=== PATIENT | female | born 2000 | race Caucasian/White ===

== ENCOUNTER → 2019-08-21 16:52 | Outpatient (CLI) | payer OTHER, SELFPAY ==
[2019-08-21 17:06] LABS: Basophils # 0.1 K/mm3 (0-0.2); Basophils % 0.8 % (0.1-2.0); Eosinophils # 0.2 K/mm3 (0.0-0.4); Eosinophils % 1.9 % (0.1-12.0); Hematocrit 48.5 % (37.0-47.0); Hemoglobin 16.2 g/dL (12.2-16.2); Mean Corpuscular HGB Conc 33.5 g/dL (31.8-35.4); Mean Corpuscular Hemoglobin 31.2 pg (27.0-31.2); Mean Corpuscular Volume 93.4 fl (81-99); Mean Platelet Volume 7.9 fl (7.4-10.4); Monocytes # 0.4 K/mm3 (0.1-1.0); Monocytes % 3.8 % (1.7-9.3); Neutrophils # 7.1 K/mm3 (1.8-7.8); Neutrophils % 65.5 % (37.0-80.0); Platelet Count 281 K/mm3 (142-424); Red Blood Count 5.19 M/mm3 (4.20-5.40); Red Cell Distribution Width 12.9 % (11.5-17.5); White Blood Count 10.8 K/mm3 (4.5-13.0)
[2019-08-21 18:31] LABS: Erythrocyte Sedimentation Rate 2 mm/hr (0-20)
[2019-08-21 19:41] LABS: Alanine Aminotransferase 16 U/L (12-78); Albumin Level 4.1 gm/dL (3.4-5.0); Albumin/Globulin Ratio 1.2 (1.1-1.8); Alkaline Phosphatase 84 U/L (46-116); Anion Gap 15.5 mEq/L (5-15); Aspartate Amino Transferase 17 U/L (15-37); Bilirubin,Total 0.9 mg/dL (0.2-1.0); Blood Urea Nitrogen 15 mg/dL (7-18); Calcium 9.5 mg/dL (8.5-10.1); Carbon Dioxide 27 mmol/L (21.0-32.0); Chloride 102 mmol/L (98-107); Chol/HDL Ratio 2.6 (1-3.5); Cholesterol 153 mg/dL (140-200); Creatinine,Serum 0.77 mg/dL (0.55-1.02); Estimated Glomerular Filt Rate 96 ml/min (>60); GFR (African American) 116 ML/MIN (>60); Globulin 3.5 gm/dl (1.3-3.2); Glucose 105 mg/dL (74-106); HDL Cholesterol 59 mg/dL (29-89); LDL Cholesterol 79 mg/dL (0-130); Potassium 3.5 mmoL/L (3.5-5.1); Sodium 141 mmol/L (136-145); T4 (Thyroxine) 9.1 ug/dl (5.4-10.6); Thyroid Stimulating Hormone 1.16 uIU/ml (0.516-4.13); Total Protein,Serum 7.6 gm/dL (6.4-8.2); Triglycerides 75 mg/dL (30-200); VLDL Cholesterol 15 mg/dL (0-40)
[2019-08-21 19:42] LABS: C-Reactive Protein < 0.2 mg/dL (0.0-0.9)
[2019-08-21 19:43] LABS: HCG Qualitative, Serum Negative (Negative)
[2019-08-23 11:04] LABS: Vitamin D 25 Hydroxy 27.5 ng/mL (30.0-100.0)
[2019-08-23 16:52] LABS: Peripheral Smear Review Scanned Result
== END ==
PROVIDERS: Visit Provider Nurse Practitioner Family
DX: N63.20 Unspecified lump in the left breast, unspecified quadrant (principal); R59.0 Localized enlarged lymph nodes; R79.82 Elevated C-reactive protein (CRP); E55.9 Vitamin D deficiency, unspecified
CPT/HCPCS: 36415; 80053; 80061; 82652; 84436; 84443; 84703; 85025; 85651; 86140

== ENCOUNTER → 2019-09-17 13:02 | Outpatient (CLI) | payer OTHER, SELFPAY ==
--- NOTE | 2019-09-17 13:03 | US_ITS ---
PROCEDURE: MM DIG MAMM BI DX W/CAD CLINICAL INDICATION: mass,discharge,enlarged lymp node COMPARISON: US BREAST LT COMPLETE from 09/17/2019 TECHNIQUE: Standard CC and MLO images and 3D Tomosynthesis was obtained. R2 CAD reviewed. Left breast ultrasound. FINDINGS: Patient reports palpable nodule in the 10 o'clock region of the left breast. There is heterogeneously dense fibroglandular tissue bilaterally which may obscure mammographic lesion. There benign-appearing calcifications in the retroareolar region on the right.. There is mild skin thickening bilaterally of questionable clinical significance. Asymmetry is present in the deep upper aspect of the left breast. This appears to compress out on the spot compression views. Left breast ultrasound: In the region of the palpable abnormality there is some heterogeneous echogenicity which appears to represent fibroglandular tissue. No discrete margins. No posterior acoustical shadowing. This area is wider than tall. IMPRESSION: Probably benign findings left breast. Probable asymmetric fibroglandular tissue in the upper aspect of the left breast. Recommend 3 month follow-up BI-RAD Category: 3 Probably Benign Finding Short Term Follow-up FOLLOW-UP: 3M 3 Month Follow-up (A letter has been sent to the patient regarding results of the study.) Dictated by: Jorge Díaz MD 09/20/2019 10:28 Electronically signed by Jorge Díaz MD in [place] 09/20/2019 10:28
== END ==
PROVIDERS: PCP Nurse Practitioner Family; Visit Provider Nurse Practitioner Family
DX: N63.21 Unspecified lump in the left breast, upper outer quadrant (principal)
CPT/HCPCS: 76641; 77062; 77066; G0279

== ENCOUNTER → 2019-10-09 14:13 | Outpatient (CLI) | payer OTHER, SELFPAY ==
[2019-10-09 14:43] LABS: Basophils # 0.1 K/mm3 (0-0.2); Basophils % 0.7 % (0.1-2.0); Eosinophils # 0.1 K/mm3 (0.0-0.4); Eosinophils % 0.8 % (0.1-12.0); Hematocrit 46.3 % (37.0-47.0); Hemoglobin 15.7 g/dL (12.2-16.2); Lymphocytes # 3.2 K/mm3 (0.7-4.5); Lymphocytes % 30.5 % (10-50); Mean Corpuscular HGB Conc 33.9 g/dL (31.8-35.4); Mean Corpuscular Hemoglobin 31.8 pg (27.0-31.2); Mean Corpuscular Volume 93.9 fl (81-99); Mean Platelet Volume 8.6 fl (7.4-10.4); Monocytes # 0.4 K/mm3 (0.1-1.0); Monocytes % 3.9 % (1.7-9.3); Neutrophils # 6.8 K/mm3 (1.8-7.8); Neutrophils % 64.1 % (37.0-80.0); Platelet Count 294 K/mm3 (142-424); Red Blood Count 4.92 M/mm3 (4.20-5.40); Red Cell Distribution Width 12.9 % (11.5-17.5); White Blood Count 10.6 K/mm3 (4.5-13.0)
== END ==
PROVIDERS: PCP Internal Medicine Medical Oncology; Visit Provider Internal Medicine Medical Oncology
DX: D75.1 Secondary polycythemia (principal)
CPT/HCPCS: 36415; 85025

== ENCOUNTER → 2020-02-03 12:46 | Outpatient (CLI) | payer OTHER, SELFPAY ==
--- NOTE | 2020-02-03 12:46 | US_ITS ---
PROCEDURE: MM DIG MAMM DX UNILAT LT CAD Digital Breast Tomosynthesis Included CLINICAL INDICATION: 3 mth followup . Patient feels thick ridge along the chest wall COMPARISON: MM DIG MAMM BI DX W/CAD from 09/17/2019 US BREAST LT COMPLETE from 09/17/2019 US BREAST LT COMPLETE from 02/03/2020 TECHNIQUE: Standard images performed with 3D tomogram images and left breast ultrasound FINDINGS: Dense fibroglandular tissue. Asymmetry once again noted in the superior aspect of the left breast without sonographic correlate. No malignant appearing mass or malignant-appearing microcalcification. Left breast ultrasound: No cyst or solid nodules are evident within the breast. There are small nodes in the axilla. IMPRESSION: Probably benign findings regarding asymmetry in the superior left breast. Please correlate with physical exam. Negative mammogram and negative ultrasound does not exclude the possibility of malignancy. If there is a palpable nodule then, it should be managed on a clinical basis. BI-RAD Category: 3 Probably Benign Finding Short Term Follow-up FOLLOW-UP: 6M 6Month Follow-up (A letter has been sent to the patient regarding results of the study.) Dictated by: Jorge Díaz MD 02/06/2020 13:19 Electronically signed by Jorge Díaz MD in [place] 02/06/2020 13:19
== END ==
PROVIDERS: PCP Internal Medicine Medical Oncology; Visit Provider Nurse Practitioner Family
DX: R92.8 Other abnormal and inconclusive findings on diagnostic imaging of breast (principal)
CPT/HCPCS: 76641; 77061; 77065; G0279

== ENCOUNTER → 2020-08-04 13:47 | Outpatient (CLI) | payer OTHER, SELFPAY ==
--- NOTE | 2020-08-04 13:47 | MM_ITS ---
PROCEDURE: MM DIG MAMM DX UNILAT LT CAD Digital Breast Tomosynthesis Included CLINICAL INDICATION: 6 mth f/u COMPARISON: MG MM DIG MAMM BI DX W/CAD from 09/17/2019 MG MM DIG MAMM DX UNILAT LT CAD from 02/03/2020 TECHNIQUE: Standard CC and MLO images and 3D Tomosynthesis was obtained. R2 CAD reviewed. FINDINGS: Prominent fibroglandular densities are seen as noted previously. Slightly asymmetric increased glandular elements are seen upper outer quadrant as before. Again ultrasound performed the same date shows no abnormality. IMPRESSION: Moderately dense and heterogenic breast parenchyma, essentially normal appearance at this age with no suspicious lesions seen BI-RAD Category: 1 Negative FOLLOW-UP: 1YR 1 Year Follow-up after the age of 38 (A letter has been sent to the patient regarding results of the study.) Dictated by: Dr. Mundo Alfaro MD 08/04/2020 15:17 Dr. Mundo Alfaro MD in [place] 08/04/2020 15:17
--- NOTE | 2020-08-04 13:47 | US_ITS ---
PROCEDURE: US BREAST LT COMPLETE CLINICAL INDICATION: 6 mth f/u COMPARISON: US US BREAST LT COMPLETE from 02/03/2020 FINDINGS: Scanning all 4 quadrants of the breast shows somewhat diffuse heterogenic echogenicity consistent with fibrocystic change. There is no suspicious cystic or solid lesion there are no findings to suggest architectural distortion. There is a normal appearing node in the axilla. IMPRESSION: Essentially unremarkable ultrasound for this age with no change when compared to previous studies and no suspicious lesions seen Dictated by: Dr. Mundo Alfaro MD 08/04/2020 15:19 Dr. Mundo Alfaro MD in [place] 08/04/2020 15:19
== END ==
PROVIDERS: PCP Nurse Practitioner Family; Visit Provider Nurse Practitioner Family
DX: R92.8 Other abnormal and inconclusive findings on diagnostic imaging of breast (principal)
CPT/HCPCS: 76641; 77061; 77065; G0279

== ENCOUNTER → 2021-05-20 10:29 | Outpatient (CLI) | payer OTHER, SELFPAY | PROVIDERS: Visit Provider Nurse Practitioner | DX: Z20.822 Contact with and (suspected) exposure to COVID-19 (principal) | CPT/HCPCS: C9803; U0003; U0005 ==

== ENCOUNTER → 2021-05-23 08:20 | Outpatient (CLI) | payer OTHER, SELFPAY | PROVIDERS: Visit Provider Nurse Practitioner | DX: Z20.822 Contact with and (suspected) exposure to COVID-19 (principal); U07.1 COVID-19 | CPT/HCPCS: C9803; U0003; U0005 ==

== ENCOUNTER 2021-05-23 17:37 | Emergency (ER) | payer OTHER, SELFPAY ==
--- NOTE | 2021-05-23 18:34 | HMH.EDUTC ---
[facility] [place] Disposition Clinical Impression: COVID-19, Viral syndrome Disposition: Home, Self-Care Condition on Discharge: Good Instructions: DI for COVID-19 (Suspected or Confirmed ), Preventing the Spread of Coronavirus Discharge Instructions Additional Instructions: Drink plenty of fluids. Take tylenol or ibuprofen for pain or fever. Try to take one of these regularly for the next several days to help yourself feel better and to help keep your fever down. Take the medications as directed. Follow up with your regular doctor. GO TO THE ER FOR ANY WORSENING SYMPTOMS Throw your tooth brush away and get a new one. Quarantine until it has been 10 days since symptoms first appeared and it has been 24 hours with no fever without the use of fever-reducing medications and your other symptoms of COVID-19 are improving The cough medication (promethazine dm) will make you drowsy, so don't drive or operate heavy machinery after taking it. Prescriptions: Ondansetron [Zofran 4mg ODT] 4 mg PO Q8HP PRN #12 tab PRN Reason: Nausea Transmission Status: Received by [id number] Benzonatate [Tessalon Perle 100mg Cap] 100 mg PO TIDP PRN #30 cap PRN Reason: Cough Transmission Status: Received by [id number] Referrals: Liz Worrell APRN [Primary Care Provider] - Time of Disposition: 18:50 Medical Decision Making - Medical Records Medical records reviewed: No: I reviewed the patient's medical records. - Deon Inquiry Pt receiving controlled substance: No Vital Signs: 05/23/21 18:56 Temperature 98.9 F Temperature Source Oral Pulse Rate 70 Respiratory Rate 16 Blood Pressure 110/74 Blood Pressure Source Automatic Cuff Blood Pressure Position Sitting Oxygen Delivery Method Room Air [facility] [place] HPI - General Stated complaint: covid pos/fever Time Seen by Provider: 05/23/21 18:34 - History of Present Illness Provider Complaint: She has felt bad for the past 3 days. She initially tested negative for covid-19, but this morning she retested and it was positive. At this time she has body aches, a dry aggravating cough, a scratchy sore throat and a head ache. She has also had some nausea also, but no vomiting or diarrhea. She denies any history of asthma or diabetes. - Related Data Previous Rx's Medication Instructions Recorded alprazolam 0.25 mg tablet 0.25 mg PO BID PRN #60 tab 03/16/21 cariprazine 1.5 mg capsule 1.5 mg PO DAILY #30 cap 03/16/21 vilazodone 40 mg tablet 40 mg PO DAILY #30 tab 04/27/21 Benzonatate [Tessalon Perle 100mg 100 mg PO TIDP PRN #30 cap 05/23/21 Cap] Ondansetron [Zofran 4mg ODT] 4 mg PO Q8HP PRN #12 tab 05/23/21 Allergies Allergy/AdvReac Type Severity Reaction Status Date / Time ketorolac [From TORADOL] Allergy Intermediate I-RASH Verified 03/16/21 16:22 codeine [CODEINE] Allergy Unknown Verified 03/16/21 16:22 Penicillins Allergy Verified 03/16/21 16:22 [facility] History - Hepatitis A Screen Attestation statement:: This patient has been screened for Hepatitis A risk factors. I have reviewed the patient's past medical history: Yes Other Surgeries: Yes: Appendectomy Amputation: No Fractures: No - Social History Smoking Status: Current every day smoker Tobacco Type: cigarettes # Packs/Day (cigarettes): 1 Alcohol Intake: never Substance Use Type: denies use, marijuana Occupational Status: unemployed, other Housing: house Household Members: family Family Hx:: Cancer, Diabetes ROS Obtained: Yes All systems reviewed & no additional complaints - Constitutional Constitutional: Reports as per HPI - Eyes Eyes: Denies blurry vision, Denies eye discharge - ENT Ears, Nose, Mouth, and Throat: Reports as per HPI - Cardiovascular Cardiovascular: Denies chest pain - Respiratory Respiratory: Reports chest congestion, Reports cough, Denies dyspnea, Denies stridor, Denies wheezing Physical Exam - General General appearance:
[2021-05-23 18:56] VITALS: BP 110/74; PULSE 70; RESP 16; TEMP 37.2; O2SAT 98
== END 2021-05-23 18:57 | disposition home or self-care (01) ==
LOC: ER 17:43 → UTC 17:45
PROVIDERS: Emergency Provider Nurse Practitioner Family; PCP Nurse Practitioner Family
DX: U07.1 COVID-19 (principal); F17.210 Nicotine dependence, cigarettes, uncomplicated
CPT/HCPCS: 99202; G0463

== ENCOUNTER 2022-12-17 13:57 | Emergency (ER) | payer OTHER, SELFPAY ==
[2022-12-17] VITALS (10 sets, daily range): BP systolic 114–152; BP diastolic 78–95; PULSE 67–127; RESP 18–20; TEMP 37.1; O2SAT 99–100; BMI 21.4
--- NOTE | 2022-12-17 13:54 | ECG_ITS ---
APPROVED REPORT Exam: Resting ECG HR:113 bpm ECG Measurements Heart Rate 113 AXES MA 143 P 87 QRSd 90 QRS 86 QT 295 T 58 QTc 362 Conclusion SINUS TACHYCARDIA Bi-atrial abnormality MODERATE ST DEPRESSION [0.05+ mV ST DEPRESSION] ABNORMAL ECG UNCONFIRMED REPORT Electronically signed by : Thomas Vidal MD 12/18/2022 21:17:58
--- NOTE | 2022-12-17 13:58 | XR_ITS ---
PROCEDURE INFORMATION: Exam: XR Chest Exam date and time: 12/17/2022 2:48 PM Age: 22 years old Clinical indication: Pain; Chest pressure; Additional info: Chest pain TECHNIQUE: Imaging protocol: Radiologic exam of the chest. Views: 1 view. COMPARISON: No relevant prior studies available. FINDINGS: Lungs: Unremarkable. No consolidation. Pleural spaces: Unremarkable. No pleural effusion. No pneumothorax. Heart/Mediastinum: Unremarkable. No cardiomegaly. Bones/joints: Unremarkable. IMPRESSION: No acute findings.
--- NOTE | 2022-12-17 13:59 | HMH.EDGENADL ---
Discharge Plan Disposition Patient Disposition: Home, Self-Care Condition: Fair Prescriptions Prescriptions: No Action alprazolam [Xanax] 0.25 mg tablet 0.25 mg PO BID PRN (Reason: anxiety) Qty: 60 1RF Vraylar 1.5 mg capsule 1.5 mg PO DAILY Qty: 30 1RF Viibryd 40 mg tablet 40 mg PO DAILY Qty: 30 1RF Rx Instructions: must administer with a meal/food Clinical Impressions Clinical Impression: Acute viral syndrome Stand Alone Forms Stand Alone Forms: Work/School Release Instructions Patient Instructions: DI for Viral Syndrome Discharge ED Provider: [facility] HPI General Chief complaint: Chest Pain Stated complaint: Chest Pain Time Seen by Provider: 12/17/22 13:59 History of Present Illness HPI narrative: Patient is a 22-year-old female with no pertinent past medical history who presents with concern for multiple complaints. She says that over the last 2 to 3 days she is felt very weak. She also notes that her body hurts all over and she has generalized malaise. She came in today because she started to develop chest pain. She denies any cough or congestion. No fever or chills. Denies any abdominal pain. Denies any dysuria. She does endorse some shortness of breath. Related Data Previous Rx's Medication Instructions Recorded alprazolam 0.25 mg tablet (Xanax) 0.25 mg PO BID PRN anxiety #60 tabs 07/25/21 cariprazine 1.5 mg capsule 1.5 mg PO DAILY #30 caps 07/25/21 (Vraylar) vilazodone 40 mg tablet (Viibryd) 40 mg PO DAILY #30 tabs 07/25/21 Allergies Allergy/AdvReac Type Severity Reaction Status Date / Time ketorolac [From TORADOL] Allergy Intermediate I-RASH Verified 03/16/21 16:22 codeine [CODEINE] Allergy Unknown Verified 03/16/21 16:22 Penicillins Allergy Verified 03/16/21 16:22 [facility] Disclaimer: The information contained in this section may have been updated after the patient was seen, as this information can be updated by other users. Social History Smoking Status: Current every day smoker tobacco type: cigarettes packs per day: 1 alcohol intake: never substance use type: denies use and marijuana current occupational status: unemployed and other Travel in the last 8 weeks: None household members: family housing: house number of children: 2 ROS Obtained: Yes All systems reviewed & no additional complaints except as documented Physical Exam General General appearance: alert and anxious Head Head exam: atraumatic, normocephalic and normal inspection Eye Eye exam: Present normal appearance and PERRL ENT ENT exam: Present normal exam, mucous membranes moist and normal external ear exam Neck Neck exam: Present normal inspection and trachea midline Chest Chest inspection: Present normal inspection and symmetric chest wall rise Respiratory Respiratory exam: Present normal lung sounds bilaterally; Absent respiratory distress Cardiovascular Cardiovascular exam: Present normal rhythm and tachycardia Abdominal Exam Abdominal exam: Present soft; Absent distention, tenderness or guarding Extremities Exam Extremities exam: Present normal inspection; Absent edema Neurological Exam Neurological exam: Present alert and oriented X3 Psychiatric Psychiatric exam: Present normal affect and normal mood Skin Skin exam: Present warm, dry, intact and normal color Medical Decision Making Medical Records Medical records reviewed: Yes I reviewed the patient's medical records. Deon Inquiry Pt receiving controlled substance: Yes Deon was queried for this patient: No Risks and benefits of using a controlled substance: were discussed with pt by me Vital Signs: 12/17/22 13:57 12/17/22 14:00 12/17/22 14:30 Temperature 98.8 F Temperature Source Oral Pulse Rate 101 H 104 H Pulse Rate [Left Radial] 127 H Respiratory Rate 18 Blood Pressure 139/90 151/95 H Blood Pressure [Right Arm] 149/94 H Blood Pressure Mean
[2022-12-17 14:19] LABS: Alanine Aminotransferase 25 U/L (12-78); Albumin Level 4.6 g/dl (3.5-5.0); Albumin/Globulin Ratio 1.4 (1.1-1.8); Alkaline Phosphatase 77 U/L (38-126); Anion Gap 17.4 mEq/L (5-15); Aspartate Amino Transferase 36 U/L (14-36); Basophils # 0.1 K/mm3 (0-0.2); Basophils % 0.5 % (0.1-2.0); Bilirubin,Total 1.4 mg/dl (0.2-1.3); Blood Urea Nitrogen 11 mg/dl (7-17); Calcium 9.5 mg/dl (8.4-10.2); Carbon Dioxide 26 mmol/L (22.0-30.0); Chloride 97 mmol/L (98-107); Creatinine Clearance Estimated 111 mL/min (50-200); Eosinophils # 0.1 K/mm3 (0.0-0.4); Eosinophils % 0.4 % (0.1-12.0); Estimated Glomerular Filt Rate 103 ml/min (>60); GFR (African American) 124 ML/MIN (>60); Globulin 3.4 g/dL (1.3-3.2); Glucose 101 mg/dl (74-100); Hematocrit 48.5 % (37.0-47.0); Hemoglobin 16.1 g/dL (12.2-16.2); Lymphocytes # 2.1 K/mm3 (0.7-4.5); Lymphocytes % 12.6 % (10-50); Mean Corpuscular HGB Conc 33.2 g/dL (31.8-35.4); Mean Corpuscular Hemoglobin 31.5 pg (27.0-31.2); Mean Corpuscular Volume 94.7 fl (81-99); Mean Platelet Volume 8.4 fl (7.4-10.4); Neutrophils # 13.5 K/mm3 (1.8-7.8); Neutrophils % 80.4 % (37.0-80.0); Platelet Count 250 K/mm3 (142-424); Potassium 3.4 mmoL/L (3.5-5.1); Red Blood Count 5.12 M/mm3 (4.20-5.40); Red Cell Distribution Width 12.6 % (11.5-17.5); Sodium 137 mmol/L (136-145); White Blood Count 16.8 K/mm3 (4.8-10.8)
[2022-12-17 14:24] LABS: MANUAL DIFFERENTIAL MANUAL DIFFERENTIAL (MANUAL DIFF)
[2022-12-17 14:27] LABS: HCG Qualitative, Serum Negative (Negative)
[2022-12-17 14:42] LABS: Troponin I < 0.01 ng/ml (0.00-0.034)
--- NOTE | 2022-12-17 14:58 | PC.NURSE ---
mehrdad joy at bedside with pt
[2022-12-17 15:20] LABS: Eosinophils % 1 % (0-3); Lymphocytes % 18 % (10-50); Monocytes % 3 % (2-9); Neutrophils % 78 % (42-76); Platelet Estimate Normal; RBC Morphology Normal; Total Cells Counted 100
--- NOTE | 2022-12-17 16:06 | PC.NURSE ---
pt states no complaints at this time, tap garcía at bedside
[2022-12-17 17:44] LABS: Troponin I < 0.01 ng/ml (0.00-0.034)
== END 2022-12-17 18:23 | disposition home or self-care (01) ==
PROVIDERS: Emergency Provider Student in an Organized Health Care Education/Training Program; PCP Physician Assistant
DX: R07.9 Chest pain, unspecified (principal); B34.9 Viral infection, unspecified; R53.1 Weakness; F17.210 Nicotine dependence, cigarettes, uncomplicated
CPT/HCPCS: 71045; 80053; 84484; 84703; 85007; 85025; 93005; 96361; 96374; 96375; 96376; 99285; J2405

== ENCOUNTER 2024-10-23 17:15 | Emergency (ER) | payer OTHER, SELFPAY ==
[2024-10-23 17:24] VITALS: BP 141/105; PULSE 91; O2SAT 99
[2024-10-23 17:25] VITALS: BP 148/85; PULSE 96; O2SAT 99
--- NOTE | 2024-10-23 17:25 | XR_ITS ---
PROCEDURE INFORMATION: Exam: XR Right Hand Exam date and time: 10/23/2024 5:39 PM Age: 23 years old Clinical indication: Pain; Hand; Right; Additional info: Infected cat bite thenar eminence, R/O tooth TECHNIQUE: Imaging protocol: Radiologic exam of the right hand. Views: 3 or more views. COMPARISON: No relevant prior studies available. FINDINGS: Bones/joints: See Soft tissues finding. Soft tissues: Mild right thumb soft tissue swelling without acute osseous abnormality. No radiopaque foreign bodies identified at the soft tissues of the right thenar eminence. Other findings: Process report IMPRESSION: 1. Mild right thumb soft tissue swelling without acute osseous abnormality. 2. No radiopaque foreign bodies identified at the soft tissues of the right thenar eminence.
[2024-10-23 17:28] VITALS: BP 148/85; PULSE 92; RESP 14; TEMP 36.9; O2SAT 97; BMI 19.3
--- NOTE | 2024-10-23 17:33 | HMH.EDGENADL ---
Discharge Plan Disposition Patient Disposition: Xfer Short-Term Hosp Chief Complaint: Animal Bite Prescriptions Prescriptions: No Action No Known Home Medications Referrals Follow up/Referrals: Josse Joya DO [Primary Care Provider] - See instructions Clinical Impressions Clinical Impression: Flexor tenosynovitis of thumb, Cat bite Instructions Patient Instructions: Animal Bites Print Language Print Language: Hebrew Discharge ED Provider: Emery Simental General Adult HPI General Chief complaint: Animal Bite Stated complaint: cat bite two days ago Time Seen by Provider: 10/23/24 17:18 Mode of Arrival: Ambulatory Source of Information: Patient Description of Symptoms (Recalled from ER Triage Doc. by RN): patient states on sunday she was bit by her cat on the right thumb and now can not move her thumb. she reports the cat was vaccinated. 03/15 pain History of Present Illness HPI narrative: Please note that above description of symptoms, in this electronic medical record under categorization of recalled from ER triage doctor by RN are reflective of an initial nursing assessment, however, is not reflective of my full history and physical exam that was personally taken and clarified. Consequentially, this preceding description of symptoms, which may include the patient's categorized chief complaint in the EMR, do not reflect my personal clinical impression, and the ultimate description of history of present illness and patient stated complaints should be deferred to this section of the note. Unless stated otherwise or congruent with this section of the note, additional signs, symptoms, or incongruence should be interpreted as inaccurate with my clinical impression. Related Data Home Medications ?Medication ?Instructions ?Recorded ?Confirmed No Known Home Medications 10/23/24 10/23/24 Allergies Allergy/AdvReac Type Severity Reaction Status Date / Time ketorolac (From TORADOL) Allergy Intermediate I-RASH Verified 03/16/21 16:22 codeine (CODEINE) Allergy Unknown Verified 03/16/21 16:22 Penicillins Allergy Verified 03/16/21 16:22 [facility] Disclaimer: The information contained in this section may have been updated after the patient was seen, as this information can be updated by other users. Social History Smoking Status: Current every day smoker tobacco type: cigarettes packs per day: 1 alcohol intake: never substance use type: denies use and marijuana current occupational status: unemployed and other Travel in the last 8 weeks: None household members: family housing: house number of children: 2 Have you lived/traveled outside [place] in past 30 days?: No Contact w/someone who lives/traveled outside US past 30 days?: No Exposure to someone with infectious disease in past 14 days?: No Do you have a fever (greater than 100.4 F or 38 C)?: No Have you tested positive for COVID-19: No Exposed to someone with COVID-19 in past 14 days?: No Do you have a sore throat?: No Do you have a cough?: No Do you have any weakness?: No Do you have any diarrhea?: No Are you experiencing any unusual bleeding?: No Do you have any muscle aches/pain?: No Do you have any abdominal pain?: No Are you experiencing loss of taste or smell?: No Other Medical History Have you received the Flu Vaccine for this season: No Have you received the Pneumonia Vaccine: No ROS Obtained: Yes All systems reviewed & no additional complaints except as documented Physical Exam General General appearance: alert Head Head exam: atraumatic and normocephalic Eye Eye exam: Present normal appearance, PERRL and EOMI Neck Neck exam: Present normal inspection, full ROM and trachea midline Respiratory Respiratory exam: Absent respiratory distress, wheezes, stridor, accessory muscle use or prolonged expiratory phase Cardiovascular Cardiovascular exam: Present other (Pulses equal symmetric in upper and lower extremities) Abdominal Exam Abdominal exam: Present soft; Absent distention, tenderness or pulsatile mass Extremities Exam Extremities exam: Present edema and other (Per MDM) Neurological Exam Neurological exam: Present alert, oriented X3 and CN II-XII intact; Absent motor sensory deficit Skin Skin exam: Present warm and dry; Absent diaphoresis or erythema Medical Decision Making Medical Records Medical records reviewed: Yes I reviewed the patient's medical records. Screening: Per USPSTF and CDC recommendations, given the prevalence of disease in our region, it is our hospital?s policy to screen for HIV and viral Hepatitis for all patients aged 18 and over and those with ongoing risk factors. Deon Inquiry Pt receiving controlled substance: No Deon was queried for this patient: No Vital Signs: 10/23/24 17:24 10/23/24 17:25 10/23/24 17:28 Temperature 98.4 F Temperature Source Oral Pulse Rate 91 H 96 H Pulse Rate [Right] 92 H Respiratory Rate 14 Blood Pressure 141/105 H 148/85 H Blood Pressure [Left Arm] 148/85 H Blood Pressure Mean [Left Arm] 106 Blood Pressure Source [Left Arm] Automatic Cuff Blood Pressure Position [Left Arm] Sitting 02 Sat by Pulse Oximetry 99 99 97 Oxygen Delivery Method Room Air Room Air Room Air Lab Data Lab Results 10/23/24 17:38: WBC 9.6, RBC 5.11, Hgb 16.1, Hct 45.4, MCV 88.8, MCH 31.5 H, MCHC 35.5 H, RDW 12.0, Plt Count 381, MPV 10.2, Neut % (Auto) 66.2, Lymph % (Auto) 26.4, Turner % (Auto) 5.8, Eos % (Auto) 0.7, Baso % (Auto) 0.7, Neut # (Auto) 6.3, Lymph # (Auto) 2.5, Turner # (Auto) 0.6, Eos # (Auto) 0.1, Baso # (Auto) 0.1, Sodium 138, Potassium 3.7, Chloride 103, Carbon Dioxide 26, Anion Gap 12.7, BUN 9, Creatinine 0.70, Estimated Creat Clear 99, Estimated GFR 102, Est GFR ( Amer) 123, Glucose 93, Lactate 1.2, Calcium 9.8, Total Bilirubin 1.8 H, AST 32, ALT 19, Alkaline Phosphatase 83, Total Creatine Kinase 76, Total Protein 8.4 H, Albumin 5.1 H, Globulin 3.3 H, Albumin/Globulin Ratio 1.5 10/23/24 17:38 10/23/24 17:38 Orders (Tests/Meds): ED MEDICATIONS Discontinued Medications Generic Name Dose Route Start Last Admin Trade Name Sriram PRN Reason Stop Dose Admin Acetaminophen 1,000 mg 10/23/24 17:36 10/23/24 17:52 Acetaminophen 500mg Tab PO 10/23/24 17:37 1,000 mg ONCE ONE Administration Doxycycline Hyclate 100 mg/ 250 mls @ 166.667 mls/hr 10/23/24 17:26 10/23/24 17:55 Sodium Chloride IV 10/23/24 17:27 166.667 mls/hr ONCE ONE Administration Metronidazole 500 mg in 100 mls @ 100 mls/hr 10/23/24 17:26 10/23/24 17:54 Flagyl 500mg/100ml Ivpb IV 10/23/24 18:25 100 mls/hr ONCE ONE Administration Morphine Sulfate 4 mg 10/23/24 17:36 10/23/24 17:51 Morphine 4mg/Ml Syringe IV 10/23/24 17:37 4 mg ONCE ONE Administration Ondansetron HCl 4 mg 10/23/24 17:36 10/23/24 17:54 Ondansetron 4mg/2ml Vial IV 10/23/24 17:37 4 mg ONCE ONE Administration Tetanus/Reduced Diphtheria/Acell Pertussis 0.5 ml 10/23/24 17:35 10/23/24 17:52 Tet/Diphth/Pert-Adult 0.5ml Syringe IM 10/23/24 17:36 0.5 ml .ONCE ONE Administration ORDERS Category Date Time Status Hand XR right minimum 3 views [XR hand RT min 3V] Stat Exams 10/23/24 17:25 Completed POCUS Point of Care (ER Only) Stat Exams 10/23/24 17:25 Completed CBC w/Auto Diff [Complete Blood Count Auto Diff] Stat Lab 10/23/24 17:38 Completed CK [Creatine Kinase] Stat Lab 10/23/24 17:38 Results CMP [Comprehensive Metabolic Panel] Stat Lab 10/23/24 17:38 Results HCG,Quantitative Stat Lab 10/23/24 17:38 Results HIV Combo Stat Lab 10/23/24 17:38 Received Hepatitis C Ab Qual. W/ RFX Stat Lab 10/23/24 17:38 Received Lactic Acid Stat Lab 10/23/24 17:38 Completed Blood Culture Stat Micro 10/23/24 17:38 Received Medical Decision Narrative: 23-year-old female up-to-date on vaccinations (with the exception of Tdap) presenting with cat bite and infection. She states that 2 days prior to this, a dog (dog was fully vaccinated) attacked her cat (also fully vaccinated against rabies). As the cat was dying, she tried to pick it up and bit her on both of her hands. Both seem to have gotten infected, left hand as well as right hand. Right hand is most concerning to her as she is losing the ability to flex and oppose the thumb. Moderate to severe pain that does not radiate. Made worse with application of pressure and motion. History was obtained via conversation with patient. On arrival, patient hemodynamically stable, alert, oriented x4, appropriate, GCS 15, moving all extremities spontaneously, pupils equal and reactive to light. Full physical exam performed and significant for very clinically well-appearing female no acute distress. She does have cat bite on left distal digit that appears to have swelling, erythema, warmth, but no obvious fluctuance. Range of motion intact there. Regarding the right hand, she has puncture wounds on the thenar eminence as well as on the distal part of the thumb. Pretty exquisitely tender to palpation. Fusiform swelling, worse on palmar surface of hand than dorsal surface. Resting in mild flexion at the MCP joint. Significant pain with any range of motion actively or passively. Neurovascularly intact, however she does have some subjective decrease sensation on the medial aspect of the thumb. No obvious fluctuance or palpable foreign body. Differential includes retained tooth/foreign body, abscess, cellulitis, flexor tenosynovitis, myositis, among others. Patient was given morphine, Zofran, Tylenol, Tdap for symptomatic management and correction of underlying abnormalities. Patient states she is penicillin allergic, although she has never had penicillins in her life, doxycycline and Flagyl were administered. Bedside [id number] ultrasound was performed, also interpreted by me. Also given Zofran, morphine, Tylenol. Patient has soft tissue edema and what appears to be fluid under the flexor pollicis longus tendon. No obvious or discernible abscess. Soft tissue structures are intact. Workup independently interpreted and significant for nonactionable chemistry, lactate normal at 1.2. Patient CK also normal. On independent interpretation of imaging, no acute foreign body or remnant tooth on hand x-rays. See radiology read for full review of final results. Images were power shared. [facility] was contacted and interactive discussion was had. Because patient high risk for clinical decompensation if discharged, deemed appropriate for transfer and inpatient admission. Results were relayed to patient who voiced understanding and patient was agreeable to transfer, inpatient admission, and management. Patient was graciously accepted and transferred to [facility] for further definitive management, under Dr. Oneal for hand surgery evaluation. Client Service Administrator disclaimer Much of this encounter note is an electronic gasoline attendant spoken language to printed text. Electronic gasoline attendant of the spoken language may permit errors. Although I have reviewed the note, some errors may still exist. Procedures Limited Ultrasound Indication:: Limited soft tissue ultrasound Indication: Soft tissue swelling after cat bite 48 hours prior Identified structures: Location: Right thumb and thenar eminence Findings: Soft tissue swelling and fluid under flexor tendon of FPL Impression: Concern for flexor tenosynovitis of right FPL Images were saved to permanent archive The study was technically adequate Soft Tissue CPT Codes: CPT Neck: 74557-77 CPT Upper extremity: 71049-79 CPT Axilla: 73051-44 CPT Chest wall: 21093-32 CPT Breast: 61003-33-WZ/LT (complete), 76917-25-AA/LT (limited), CPT Upper Back: 17826-94 CPT Lower Back: 84350-43 CPT Abdominal Wall: 20111-18 CPT Pelvic Wall: 90124-70 CPT Lower Extremity: 28250-02 CPT Other Soft Tissue: 56596-90 This study was performed by me, and I personally interpreted all images/videos. Based on my clinical judgement, these images were adequate and did not necessitate further imaging. Critical Care Critical Care Time Critical Care Time: Yes (MSLelia) Attestation: On 10/23/24, the high probability of a clinically significant, sudden or life threatening deterioration of the following system(s) required my full and direct attention, intervention and personal management. The time I documented below is in addition to time spent performing reported procedures but includes the following listed in this critical care notation. Total Time Total Critical Care Time: 35
[2024-10-23] MEDS: MORPHINE 4MG/ML SYRINGE 4 MG IV (17:51)
[2024-10-23] MEDS: ACETAMINOPHEN 500MG TAB 1000 MG PO (17:52)
[2024-10-23] MEDS: TET/DIPHTH/PERT-ADULT 0.5ML SYRINGE 0.5 ML IM (17:52)
[2024-10-23] MEDS: METRONIDAZ/SOD CHL 500 MG/100 ML PIGGYBACK 100 MG IV (17:54)
[2024-10-23] MEDS: ONDANSETRON 4MG/2ML VIAL 4 MG IV (17:54)
[2024-10-23] MEDS: DOXYCYCLINE HYCLATE 100 MG in 0.9 % SODIUM CHLORIDE 250 ML 166.667 MG IV (17:55)
--- NOTE | 2024-10-23 17:55 | PC.NURSE ---
DR MAHONEY AT BS W/ US
[2024-10-23 18:01] LABS: Basophils # 0.1 K/mm3 (0-0.2); Basophils % 0.7 % (0.1-2.0); Eosinophils # 0.1 K/mm3 (0.0-0.4); Eosinophils % 0.7 % (0.1-12.0); Hematocrit 45.4 % (37.0-47.0); Hemoglobin 16.1 g/dL (12.2-16.2); Lymphocytes # 2.5 K/mm3 (0.7-4.5); Lymphocytes % 26.4 % (10-50); Mean Corpuscular HGB Conc 35.5 g/dL (31.8-35.4); Mean Corpuscular Hemoglobin 31.5 pg (27.0-31.2); Mean Corpuscular Volume 88.8 fl (81-99); Mean Platelet Volume 10.2 fl (7.4-10.4); Monocytes # 0.6 K/mm3 (0.1-1.0); Monocytes % 5.8 % (1.7-9.3); Neutrophils # 6.3 K/mm3 (1.8-7.8); Neutrophils % 66.2 % (37.0-80.0); Platelet Count 381 K/mm3 (142-424); Red Blood Count 5.11 M/mm3 (4.20-5.40); White Blood Count 9.6 K/mm3 (4.8-10.8)
[2024-10-23 18:07] VITALS: BP 124/100; PULSE 92; O2SAT 98
[2024-10-23 18:09] LABS: Albumin Level 5.1 g/dl (3.5-5.0); Chloride 103 mmol/L (98-107); Potassium 3.7 mmoL/L (3.5-5.1); Sodium 138 mmol/L (136-145)
--- NOTE | 2024-10-23 18:09 | PC.NURSE ---
CALLED MD FOR TRANSFER PER FOR INFECTED CAT BITE OF HAND NEEDING HAND SURGERY WAITING FOR CALL BACK
[2024-10-23 18:11] LABS: Alanine Aminotransferase 19 U/L (12-78); Aspartate Amino Transferase 32 U/L (14-36); Bilirubin,Total 1.8 mg/dl (0.2-1.3); Blood Urea Nitrogen 9 mg/dl (7-17); Creatinine Clearance Estimated 99 mL/min (50-200); Estimated Glomerular Filt Rate 102 ml/min (>60); GFR (African American) 123 ML/MIN (>60)
[2024-10-23 18:12] LABS: Albumin/Globulin Ratio 1.5 (1.1-1.8); Alkaline Phosphatase 83 U/L (38-126); Anion Gap 12.7 mEq/L (5-15); Calcium 9.8 mg/dl (8.4-10.2); Carbon Dioxide 26 mmol/L (22.0-30.0); Creatine Kinase 76 U/L (30-135); Globulin 3.3 g/dL (1.3-3.2); Glucose 93 mg/dl (74-100); Total Protein,Serum 8.4 g/dl (6.3-8.2)
[2024-10-23 18:13] LABS: Lactic Acid 1.2 mmol/L (0.7-2.1)
--- NOTE | 2024-10-23 18:23 | PC.NURSE ---
on phone with
[2024-10-23 18:30] VITALS: BP 135/82; PULSE 69; O2SAT 99
[2024-10-23 18:33] LABS: HCG,Quantitative < 2 mIU/ml (0-5.42)
[2024-10-23 18:36] VITALS: BP 138/82; PULSE 80; RESP 16; TEMP 36.9; O2SAT 99
[2024-10-23 19:10] LABS: HIV Combo NEGATIVE (Negative)
[2024-10-23 19:18] LABS: Hepatitis C Ab Qual. W/ RFX NEGATIVE (Negative)
== END 2024-10-23 19:18 | disposition short-term general hospital (02) ==
PROVIDERS: Emergency Provider Emergency Medicine; PCP Internal Medicine
DX: M65.941 Unspecified synovitis and tenosynovitis, right hand (principal); M25.341 Other instability, right hand; M79.641 Pain in right hand; M79.642 Pain in left hand; F17.210 Nicotine dependence, cigarettes, uncomplicated; Z23 Encounter for immunization; W55.01XA Bitten by cat, initial encounter; Y93.89 Activity, other specified; Y92.009 Unspecified place in unspecified non-institutional (private) residence as the place of occurrence of the external cause
CPT/HCPCS: 73130; 80053; 82550; 83605; 84702; 85025; 86803; 87040; 87389; 90471; 90715; 96374; 96375; 99291; J2270; J2405